=== PATIENT | female | born 1970 | race Caucasian/White ===

== ENCOUNTER → 2020-12-28 | Outpatient (CLI) | payer OTHER ==
--- NOTE | 2021-01-05 13:56 | RAD ---
INDICATION: 50 years of age asymptomatic female patient presents for screening mammography. TECHNIQUE: Bilateral full field craniocaudal and mediolateral oblique images were obtained using dig ital technique and also analyzed with computer-aided detection software. COMPARISON: This is a baseline examination BREAST COMPOSITION: Category A: The breasts are predominantly fatty. FINDINGS: Focal asymmetry in the lateral, slightly superior left breast approximately 6 cm from the nipple. No suspicious left breast] calcification or architectural distortion. No suspicious masses, microcalcifications or architectural distortion is present to suggest malignanc y in the right breast. The visualized axillae are unremarkable. IMPRESSION: Left breast focal asymmetry, findings for which additional imaging is advised. RECOMMENDATION: Annual screening mammography is recommended, unless clinically indicated sooner based on symptoms or change in physical exam. BIRADS 0: INCOMPLETE - NEED ADDITIONAL IMAGING EVALUATION AND/OR PRIOR MAMMOGRAMS FOR COMPARISON. This study was interpreted with the benefit of Computerized Aided Detection (CAD). Patient information is entered into the reminder system with a target due date for the next screening mammogram. Mammography is the most sensitive method for finding small breast cancers, but it does not detect the m all and is not a substitute for careful clinical examination. A negative mammogram does not negate a clinically suspicious finding and should not result in delay in biopsying a clinically suspicious a bnormality. "Our facility is accredited by the [employer] Mammography [employer]." Electronically signed by: Richie Reyna MD (01/05/2021 1:54 PM) [facility]
== END ==
LOC: MAMMO 13:03
PROVIDERS: ATTEND Preventive Medicine Occupational Medicine
DX: Z12.31 Encounter for screening mammogram for malignant neoplasm of breast (principal)
CPT/HCPCS: 77067

== ENCOUNTER → 2021-03-01 | Outpatient (CLI) | payer OTHER ==
--- NOTE | 2021-03-01 13:57 | RAD ---
EXAM: Left breast diagnostic; left breast sonogram. HISTORY: 50-year-old female presents for evaluation of nodular asymmetry within the left breast demon strated on a mammogram dated 12/28/2020. TECHNIQUE: Full-field digital and spot compression views of the left breast are obtained. Sonographic imaging of the left breast targeted to the site of mammographic nodularity asymmetry was also perfor med. COMPARISON: 12/28/2020. BREAST PARENCHYMAL DENSITY: Level A - Mostly fat. FINDINGS: There is a persistent circumscribed nodular density within the 3:00 position of the left br east 6 cm from the nipple. There is a punctate benign calcification in this location. There is no arc hitectural distortion. Sonographic imaging of the left breast demonstrates a circumscribed nonvascular hypoechoic lesion at the 3:00 position 6 cm from the nipple measuring 5 mm in maximum dimension. This demonstrates posteri or through transmission, favoring a benign cystic etiology. No additional lesion is seen. IMPRESSION: 1. Persistent nodular density within the 3:00 position of the left breast with additional mammographi c views, likely corresponding with a 5 mm suspected cyst in this location demonstrated sonographicall y. 2. BI-RADS Category 3: Probably benign finding(s). Precautionary short-term follow-up with a left marlena ast sonogram in 6 months is recommended. If your mammogram demonstrates that you have dense breast tissue, which could hide abnormalities, and if you have other risk factors for breast cancer that have been identified, you might benefit from s upplemental screening tests that may be suggested by your ordering physician. Dense breast tissue, i n and of itself, is a relatively common condition. This information is not provided to cause undue c oncern, but rather to raise your awareness and to promote discussion with your physician regarding th e presence of other risk factors, in addition to dense breast tissue. A report of your mammography re sults will be sent to you and your physician. You should contact your physician if you have any ques tions or concerns regarding this report. Mammography is a sensitive method for finding small breast cancers, but it does not detect them all a nd is not a substitute for careful clinical examination. A negative mammogram does not negate a clin ically suspicious finding and should not result in delay in biopsying a clinically suspicious abnorma lity. PQRS compliance statement - Patient information was entered into a reminder system with a target due date for the next mammogram. "Our facility is accredited by the [employer] Mammography [employer]." Electronically signed by: Tiffani Ontiveros MD (03/01/2021 1:55 PM) [id number]
== END ==
LOC: MAMMO 12:54
PROVIDERS: ATTEND Preventive Medicine Occupational Medicine
DX: N63.23 Unspecified lump in the left breast, lower outer quadrant (principal)
CPT/HCPCS: 76642; 77065